=== PATIENT | female | born 1950 | race Asian ===

== ENCOUNTER 2019-03-08 14:31 | Emergency (ER) | payer OTHER ==
[~2019-03-08] VITALS: Ht 152.4 cm; Wt 47.6 kg
--- NOTE | 2019-03-08 14:40 | NUR ---
CAME IN TO ED FOR FOREHEAD FLUID FILLED BLISTERS/RASH X TODAY, WAS TOLD BY PMD TO GO TO ED. POSSIBLE SHINGLES. TO ER BED 11, HOOKED TO MONITOR, CHANGED TO GOWN, PROVIDED W WARM BLANKET, AWAITING MD KIRBY.
--- NOTE | 2019-03-08 14:54 | NUR ---
DR PATIÑO AT BEDSIDE
[2019-03-08] MEDS ORDERED: HYDROCODONE/APAP 5/325MG 1 EACH TABLET PO ONE (15:00)
[2019-03-08] MEDS ORDERED: IV LR 1000 ML 1,000 ML IV ONE (15:00)
[2019-03-08] MEDS ORDERED: VALACYCLOVIR HCL 500 MG TABLET PO ONE (15:00)
[2019-03-08] MEDS ORDERED: predniSONE 20 MG TABLET PO ONE (15:00)
[2019-03-08] MEDS ORDERED: KETOROLAC TROMETHAMINE INJ 30 MG/ML VIAL IV ONE (15:00)
[2019-03-08] MEDS ORDERED: predniSONE 20 MG TABLET ONE (15:09)
[2019-03-08] MEDS ORDERED: HYDROCODONE/APAP 5/325MG 1 EACH TABLET ONE (15:09)
[2019-03-08] MEDS ORDERED: KETOROLAC TROMETHAMINE 15 MG/ML VIAL ONE (15:09)
[2019-03-08 15:10] LABS: BASOPHILS % (AUTO) 0.2 % (0.0-2.0); HEMATOCRIT 44 % (33-45); HEMOGLOBIN 14.9 g/dL (11.5-14.8); LYMPHOCYTES # (AUTO) 1.6 /CMM (0.8-4.8); LYMPHOCYTES % (AUTO) 15.6 % (20.0-44.0); MEAN CORPUSCULAR HGB CONC 34 g/dl (31.0-36.0); MEAN CORPUSCULAR VOLUME 93 fL (82-100); MONOCYTES # (AUTO) 1.9 /CMM (0.1-1.30); MONOCYTES % (AUTO) 18.7 % (2.0-12.0); NEUTROPHILS # (AUTO) 6.4 /CMM (1.8-8.9); NEUTROPHILS % (AUTO) 64.5 % (43.0-81.0); PLATELET COUNT (AUTO) 309 /CMM (150-450); RED BLOOD CELL COUNT(AUTO) 4.77 MIL/uL (4.0-5.2)
[2019-03-08] MEDS ORDERED: VALACYCLOVIR HCL 500 MG TABLET ONE (15:10)
[2019-03-08 15:17] LABS: CREATININE 1.2 mg/dL (0.6-1.3); POTASSIUM 3.8 mmol/L (3.5-5.1)
[2019-03-08 15:23] LABS: ALBUMIN 3.6 g/dL (3.4-5.0); BILIRUBIN,DIRECT 0.1 mg/dL (0.0-0.2); BILIRUBIN,TOTAL 0.6 mg/dL (0.2-1.0); TOTAL PROTEIN, SERUM 8.5 g/dL (6.4-8.2)
[2019-03-08] MEDS ORDERED: FLUORESCEIN SODIUM OPHTH 1 EA STRIP ONE (15:28)
[2019-03-08] MEDS ORDERED: TETRACAINE HCL/PF 0.5% UD 2 ML BOTTLE ONE (15:28)
[2019-03-08] MEDS ORDERED: FLUORESCEIN SODIUM OPHTH 1 EA STRIP OP ONE (15:30)
[2019-03-08] MEDS ORDERED: TETRACAINE HCL/PF 0.5% UD 2 ML BOTTLE LEFTEYE ONE (15:30)
--- NOTE | 2019-03-08 16:06 | NUR ---
PT IN BED AWAKE, AT BEDSIDE, HOOKED TO MONITOR, VSS, NAD NOTED. KEPT WARM AND SAFE.
--- NOTE | 2019-03-08 17:30 | NUR ---
IV removed. Catheter intact and site benign. Pressure and 4x4 applied to site. No bleeding noted.Patient discharged to home in stable condition. Written and verbal after care instructions given. Patient verbalizes understanding of instruction.
[2019-03-08 17:32] VITALS: BP 124/78
[2019-03-08 18:17] LABS: BAND % (MANUAL) 3 % (0.0-5.0); LYMPHOCYTES % (MANUAL) 16 % (16-48); MONOCYTES % (MANUAL) 11 % (0-11.0); NEUTROPHILS % (MANUAL) 70 (42-76)
== END 2019-03-08 17:33 | disposition home or self-care (01) ==
LOC: ER 14:40
DX: B02.9 Zoster without complications (principal); L30.9 Dermatitis, unspecified; R11.10 Vomiting, unspecified; R19.7 Diarrhea, unspecified; H57.89 Other specified disorders of eye and adnexa
CPT/HCPCS: 36415; 80048; 80076; 85025; 96361; 96374; 99284; J1885; J7120 ×2; J7512